=== PATIENT | male | born 1985 ===

== ENCOUNTER 2023-02-20 19:53 | Outpatient (REF) | payer OTHER, SELFPAY ==
[2023-02-20 17:25] LABS: Source Nasal/Nares
[2023-02-20 18:01] LABS: COVID-19 PCR Negative (Negative)
== END 2023-02-20 19:54 | disposition home or self-care (01) ==
LOC: LBN 19:53
PROVIDERS: Visit Provider Physician Assistant Medical
DX: J02.9 Acute pharyngitis, unspecified (principal); Z20.822 Contact with and (suspected) exposure to COVID-19
CPT/HCPCS: 87635; 87070